=== PATIENT | female | born 1950 | race Caucasian/White ===

== ENCOUNTER → 2019-01-25 13:17 | Outpatient (CLI) | payer MEDICARE, OTHER | END | disposition home or self-care (01) | LOC: D.CT 13:17 | PROVIDERS: ATTEND Urology | DX: Z87.442 Personal history of urinary calculi (principal) ==

== ENCOUNTER → 2019-06-25 20:59 | Outpatient (CLI) | payer MEDICARE, OTHER ==
[2019-06-25 21:16] LABS: BASOPHILS 0.3 % (0-2); EOSINOPHILS 1.1 % (0-7); HEMATOCRIT 41.1 % (36.0-48.0); HEMOGLOBIN 13.7 g/dL (12-16); IMMATURE GRANULOCYTES 0.1 % (0-5); LYMPHOCYTES 31.6 % (15-50); MCH 30.2 pg (26.0-34.0); MCHC 33.3 g/dL (31.0-37.0); MCV 90.5 fL (80.0-100.0); MEAN PLATELET VOLUME 9.1 fL (7.4-10.4); MONOCYTES 6.4 % (2-11); NEUTROPHILS 60.5 % (40-80); PLATELET COUNT 252 10x3/uL (130-400); RBC 4.54 10x6/uL (4.00-5.40); RDW 13.5 % (11.5-14.5); WBC 9.5 10x3/uL (4.8-10.8)
[2019-06-25 21:24] LABS: INR 0.94 (0.85-1.17); PROTIME 12.6 SECONDS (11.6-15.0)
[2019-06-25 21:42] LABS: ALBUMIN 3.9 g/dL (3.4-5.0); ALKALINE PHOSPHATASE 96 U/L (30-120); ALT (SGPT) 35 U/L (10-68); BILIRUBIN - TOTAL 0.38 mg/dL (0.2-1.3); CALC OSMOLALITY 285 mosm/kg (275-300); CALCIUM 8.8 mg/dL (8.5-10.1); CARBON DIOXIDE 25.9 mmol/L (21.0-32.0); CHLORIDE - SERUM 105 mmol/L (98-107); CREATINE KINASE 118 UL (21-215); CREATININE - SERUM 0.8 mg/dL (0.6-1.3); GLUCOSE 93 mg/dL (74-106); POTASSIUM - SERUM 3.9 mmol/L (3.5-5.1); PROTEIN - SERUM 7.2 g/dL (6.4-8.2); SODIUM 142 mmol/L (136-145); UREA NITROGEN 22 mg/dL (7-18); eGFR NON AFRICAN AMERICAN 76 mL/min (90-120)
[2019-06-25 21:43] LABS: TROPONIN-I < 0.017 ng/mL (0.000-0.060)
== END | disposition home or self-care (01) ==
LOC: D.LABREF 20:59
DX: R68.84 Jaw pain (principal); M79.605 Pain in left leg; Z86.718 Personal history of other venous thrombosis and embolism; Z79.01 Long term (current) use of anticoagulants

== ENCOUNTER 2019-12-05 09:51 | Day surgery (SDC) | payer MEDICARE, OTHER ==
[~2019-12-05] VITALS: Ht 170.2 cm; Wt 82.7 kg
[~2019-12-05 09:51] MED LIST: ACETAMINOPHEN500 M1 PO; ALDACTONE50 MG PO; CLARITIN 10 MG10 MG PO; CYMBALTA60 MG PO; FOLIC ACID1 MG PO; LISINOPRIL10 MG PO; NEURONTIN600 MG PO; PROTONIX20 MG PO; SUPER B COMPLE1 EAC1 PO; VITAMIN D3 PO; XANAX1 MG PO; XARELTO20 MG PO
[2019-12-05 10:13] LABS: HEMOGLOBIN 14.1 g/dL (12-16); MCHC 32.8 g/dL (31.0-37.0); MCV 91.5 fL (80.0-100.0); MEAN PLATELET VOLUME 8.6 fL (7.4-10.4); RBC 4.7 10x6/uL (4.00-5.40); RDW 12.7 % (11.5-14.5); WBC 5.1 10x3/uL (4.8-10.8)
[2019-12-05] MEDS ORDERED: TRAZODONE HCL150 MG PO (10:41)
[2019-12-05] MEDS ORDERED: LOVENOX40 MG/0.4 SC (10:41)
[2019-12-05 10:52] VITALS: BP 140/70; Ht 170.2 cm; Wt 82.7 kg
[2019-12-05 11:00] LABS: APTT 22.9 SECONDS (22.8-39.4); INR 1.02 (0.85-1.17); PROTIME 13.4 SECONDS (11.6-15.0)
--- NOTE | 2019-12-05 12:49 | NUR ---
1242 DR. BAILEY ROUNDS ON PT WITH SPOUSE AND PT.
--- NOTE | 2019-12-07 16:54 | OP ---
PATIENT NAME: GUERLINE CASTRO MEDICAL RECORD: [id number] :52 LOCATION:D[facility] ADMISSION DATE: SURGEON: IFRAH BAILEY DO DATE OF OPERATION: 12/05/2019 DICTATING PHYSICIAN: Ifrah Bailey DO PROCEDURE: Colonoscopy with polypectomy. INDICATIONS FOR PROCEDURE: Change in bowel habits, irregular bowel habits, generalized abdominal tenderness. SCOPE: Olympus video pediatric colonoscope. MEDICATIONS: Propofol 580 mg IV per anesthesia. WITHDRAWAL TIME: 21 minutes. ESTIMATED BLOOD LOSS: Minimal. COMPLICATIONS: None. FINDINGS: Informed consent was given. The patient was made comfortable with the above medication. After reaching an adequate level of sedation by slow IV push, the patient was placed on her left side. A digital rectal examination was performed and was normal. The endoscope was then advanced under direct visualization through the rectum to the cecum, confirmed by the presence of the appendiceal orifice and ileocecal valve. The endoscope was slowly withdrawn and mucosa was carefully examined. The prep quality was good. There were a total of 8 polyps removed on today's examination. Two were located in the cecum. They were both benign appearing and sessile and measured approximately 2-4 mm in diameter. The larger of the 2 polyps had some bleeding after polypectomy that was not resolving on its own, so a single endoclip was placed for hemostasis successfully. In the ascending colon there were 4 separate polyps which were benign-appearing and sessile. They ranged in size from 2-5 mm in diameter. The largest was removed using a hot snare and the other 3 were removed using hot forceps. In the transverse colon, there were two separate polyps, which were benign-appearing and sessile and ranged in size from 2-5 mm in diameter. The largest was removed using hot snare and the other was removed using a hot forceps. There were no diverticula directly seen on today's examination. Retroflexion was performed in the rectum with visualization of grade I internal hemorrhoids without bleeding. The endoscope was withdrawn from the patient. The patient tolerated the procedure well and there were no complications. IMPRESSION: 1. Grade I internal hemorrhoids without bleeding. 2. Benign-appearing sessile polyps as described above, removed using a combination of a hot snare and hot forceps. PLAN AND RECOMMENDATIONS: 1. Discharge home when recovery parameters are met. 2. Follow up on biopsy specimen results. 3. High fiber diet. 4. Consider supplementing diet with 1 tablespoon of fiber daily. 5. Continue current medications. OPERATIVE REPORT [id number] GUERLINE CASTRO 6. Recall colonoscopy in 3 years. TRANSINT:[id number] Voice Confirmation ID: [id number] DOCUMENT ID: [id number] IFRAH BAILEY DO at 1654 CC: [id number] DICTATION DATE: 12/05/19 1233 CLAM BED WORKER: 12/05/19 2259 [facility] 12/05/19 [id number] [place] [address]
== END 2019-12-05 13:15 | disposition home or self-care (01) ==
LOC: D.OPS 09:51
PROVIDERS: Anesthesiology; ATTEND Internal Medicine Gastroenterology
DX: R10.13 Epigastric pain (principal); R19.4 Change in bowel habit; R10.817 Generalized abdominal tenderness; K21.9 Gastro-esophageal reflux disease without esophagitis

== ENCOUNTER → 2020-02-08 08:19 | Outpatient (CLI) | payer MEDICARE, OTHER ==
[2019-12-05 10:52] VITALS: BMI 28.5
[~2020-02-08 08:19] MED LIST changes: +LOVENOX40 MG/0.4 SC; +TRAZODONE HCL150 MG PO
== END | disposition home or self-care (01) ==
LOC: D.RAD 08:19
PROVIDERS: ATTEND Family Medicine
DX: R05 Cough (principal)

== ENCOUNTER → 2020-08-16 07:56 | Outpatient (CLI) | payer MEDICARE, OTHER ==
[2020-05-11 14:24] VITALS: BMI 29.8
[~2020-08-16 07:56] MED LIST changes: +AZITHROMYCIN500 MG PO; +COZAAR50 MG PO; +DECADRON4 MG PO; +DULERA 100 MCG8.8 GM INH; +HYDROXYZINE HCL50 MG PO; +MELATONIN 3 MG1 TAB PO; +METAMUCIL PACKE1 PKT PO; +OMNICEF300 MG PO; +SINGULAIR10 MG PO; +TESSALON PERLE100 MG PO; +ULTRAM50 MG PO; +VITAMIN B-1100 M1 PO; +VITAMIN C PO; +VITAMIN D325 MC1 PO; +ZINC-220220 MG PO
== END | disposition home or self-care (01) ==
LOC: D.RT 07:56
PROVIDERS: ATTEND Internal Medicine Pulmonary Disease
DX: J45.909 Unspecified asthma, uncomplicated (principal)

== ENCOUNTER → 2020-08-22 08:19 | Outpatient (CLI) | payer MEDICARE, OTHER ==
[2020-05-11 14:24] VITALS: BMI 29.8
== END | disposition home or self-care (01) ==
LOC: D.MRI 08:19
PROVIDERS: ATTEND Psychiatry & Neurology Neurology
DX: R41.3 Other amnesia (principal); G60.9 Hereditary and idiopathic neuropathy, unspecified

== ENCOUNTER → 2020-09-24 12:00 | Outpatient (CLI) | payer MEDICARE, OTHER ==
[2020-05-11 14:24] VITALS: BMI 29.8
== END | disposition home or self-care (01) ==
LOC: D.LAB 12:00
PROVIDERS: ATTEND Nurse Practitioner Family
DX: J20.9 Acute bronchitis, unspecified (principal)